=== PATIENT | male | born 1985 ===

== ENCOUNTER 2018-08-14 03:48 | Emergency (ER) | payer SELFPAY ==
[2018-08-14 04:00] VITALS: BP 139/66
[2018-08-14] MEDS ORDERED: PENI-24 PO (04:10)
[2018-08-14] MEDS ORDERED: APAP/HYDROCODONE 325/5 TAB PO ONE (04:10)
[2018-08-14] MEDS ORDERED: IBUPROFEN 100 MG/5 ML UDCUP PO ONE (04:10)
[2018-08-14] MEDS ORDERED: DEXAMETHASONE SOD PHOS 10MG/ML PO ONE (04:10)
[2018-08-14] MEDS ORDERED: ACET/HYDROC 5/325MG TH ER ONLY 2 TAB/BOTTLE PO ONE (04:10)
[2018-08-14] MEDS ORDERED: PENICILLIN VK 250 MG TAB ONE (04:11)
--- NOTE | 2018-08-14 04:12 | ER Report ---
History and Physical Time Seen By MD: 03:55 Hx. of Stated Complaint: PT REPORTS SWOLLEN THROAT AND THAT THIS HAPPENS EVERY YEAR. 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 He states he gets this every year and is usually treated with steroids and sometimes antibiotics. He states that he has had gradual increase in throat swelling and is able to tolerate fluids but it is very uncomfortable. He has been having chills but no fever. He has no cough or difficulty breathing. He has no chest pain. He has no known sick contacts. Has no rashes. Sore throat is severe. Worse when trying to swallow. No relieving factors. He has tried advil without relief. REVIEW OF SYSTEMS: Constitutional: chills Eyes: No discharge. ENT: above Cardiovascular: No chest pain, no palpitations. Respiratory: No cough, no shortness of breath. Gastrointestinal: No abdominal pain, no vomiting. Genitourinary: no dysuria Musculoskeletal: No back pain. Skin: No rashes. Neurological: No headache. Remainder of the 14 system rev: Yes Allergies: Coded Allergies: No Known Drug Allergies (Unverified , 08/14/18) Home Meds Active Scripts Penicillin V Potassium 500 Mg Tab (PENICILLIN V POTASSIUM 500 MG TAB) 500 Mg Tablet, 500 MG PO Q12H for 10 Days, #20 TAB Prov:JULIA LEA MD 08/14/18 Reviewed Nurses Notes: Yes Hx Substance Use Disorder: No Hx Alcohol Use: No Constitutional Vital Sign - Last 24 Hours 08/14/18 08/14/18 08/14/18 08/14/18 03:50 03:52 04:00 04:03 Temp 99.3 Pulse 102 105 Resp 16 B/P (MAP) 140/83 (102) 140/83 139/66 (90) Pulse Ox 90 90 O2 Delivery Room Air 08/14/18 04:18 Pulse 100 Pulse Ox 91 Physical Exam General Appearance: The patient is alert, has no immediate need for airway protection and no signs of toxicity. Eyes: Pupils equal and round no pallor or injection. ENT, Mouth: Mucous membranes are moist. Oropharynx exam shows bilateral 3+ tonsils with exudates. There is no unilateral swelling. Uvula is midline and mildly edematous. There is no tongue swelling. Patient has bilateral submandibular lymphadenopathy. He does not have cervical lymphadenopathy palpable. Respiratory: There are no retractions, lungs are clear to auscultation. Cardiovascular: borderline tachycardia no mr/g Neurological: alert, no gross deficits Skin: Warm and dry, no rashes. Musculoskeletal: Neck is supple non tender. Extremities are nontender, nonswollen and have full range of motion. DIFFERENTIAL DIAGNOSIS: After history and physical exam differential diagnosis was considered for pharyngitis, yacht captain, retropharyngeal abscess, or other emergent etiology. Medical Decision Making ED Course/Re-evaluation ED Course 33-year-old male presents with sore throat. He has 4 out of 4 Cent[employer] criteria so we will not test for strep but we'll treat presumptively. He does not have evidence of WHEEL SETTER or the competitions. Patient is able to tolerate by mouth and is discharged on antibiotics and supportive treatment. He understands strict return precautions especially for development of WHEEL SETTER glomerulonephritis or other complications of strep. I considered mumps or other cause of tonsillitis but doubt at this point. Decision to Disposition Date: Aug 14, 2018 Decision to Disposition Time: 04:15 Depart Departure Latest Vital Signs Vital Signs Date Time Temp Pulse Resp B/P (MAP) Pulse Ox O2 Delivery O2 Flow Rate FiO2 08/14/18 04:18 100 91 08/14/18 04:00 139/66 (90) 08/14/18 03:52 99.3 16 Room Air Impression: Primary Impression: Strep pharyngitis Condition: Improved Disposition: HOME OR SELF-CARE New Scripts Penicillin V Potassium 500 Mg Tab (PENICILLIN V POTASSIUM 500 MG TAB) 500 Mg Tablet 500 MG PO Q12H for 10 Days, #20 TAB Prov: JULIA LEA MD 08/14/18 Patient Instructions: Strep Throat (ED) Additional Instructions: As we discussed, return for increased swelling, especially if it feels like it is primarily on one side of the throat, unable to swallow, feeling worse, very dark urine, or any concerns. JULIA LEA MD Aug 14, 2018 04:12
[2018-08-14] MEDS ORDERED: PENICILLIN VK 250 MG TAB PO SCH (06:00)
== END 2018-08-14 04:27 | disposition home or self-care (01) ==
LOC: ER 03:57
DX: J02.0 Streptococcal pharyngitis (principal)
CPT/HCPCS: 99283; J1100